=== PATIENT | male | born 1960 ===

== ENCOUNTER 2016-11-27 10:37 | Emergency (ER) | payer OTHER ==
[2016-11-27 10:48] VITALS: BP 126/76
--- NOTE | 2016-11-27 11:53 | UC ---
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 was able to ambulate immed afterwards. did exp swelling in calf that desmond and next day which persisted for few days and grad felt better. Over pst 3 days he has noticed swelling and ecchymosis in R ankle and foot. He has been working everyday since injury. he has an ortho appoint scheduled for Tuesday Severity Initially: Moderate Severity Currently: Mild Aggravating Factor(s): Other - wors with rest, better after ambulating Alleviating Factor(s): Elevation Able to Bear Weight: Yes - Allergies/Home Medications Allergies/Adverse Reactions: Allergies Allergy/AdvReac Type Severity Reaction Status Date / Time No Known Allergies Allergy Verified 11/27/16 10:47 PMH/Surg Hx/FS Hx/Imm Hx Previously Healthy: Yes - Surgical History Surgical History: None - Social History Alcohol Use: Occasionally Substance Use Type: None Smoking Status (MU): Never Smoked Tobacco Review of Systems Constitutional: Negative Skin: Bruising - R foot Respiratory: Negative Cardiovascular: Negative Musculoskeletal: Other: - pain R LE Neurological: Negative Psychological: Negative All Other Systems Reviewed And Are Negative: Yes Physical Exam Triage Information Reviewed: Yes Appearance: Well-Appearing, No Pain Distress, Well-Nourished Vital Signs: Initial Vital Signs Temp 97.8 F 11/27/16 10:41 Pulse 59 11/27/16 10:41 Resp 18 11/27/16 10:41 BP 126/76 11/27/16 10:41 Pulse Ox 100 11/27/16 10:41 Vital Signs Reviewed: Yes Respiratory Exam: Normal Cardiovascular Exam: Normal Cardiovascular: Positive: Pulses Normal - pedal pulse present R foot, Brisk Capillary Refill Musculoskeletal Exam: Other - mod swelling R calf and ankle/foot. ecchysmosis limited to distal foot and toes neg Hoaman's Musculoskeletal: Positive: Strength Intact, ROM Intact, Edema @ - R LE Neurological Exam: Normal Psychological Exam: Normal Skin Exam: Normal Lower Extremity Course/Dx - Differential Dx/Diagnosis Differential Diagnosis/HQI/PQRI: Contusion, DVT, Infection, Sprain, Strain Provider Diagnoses: Strain R lower extremity Discharge - Discharge Plan Condition: Stable Disposition: HOME Patient Education Materials: Muscle Strain (ED) Additional Instructions: elevate leg and apply warm packs follow-up with ortho as planned on Tuesday Report to ER if you experience increasing swelling, redness, cold foot, shortness of breath or chest pain
== END 2016-11-27 12:08 | disposition home or self-care (01) ==
LOC: UCEAST 10:37
DX: S86.911A Strain of unspecified muscle(s) and tendon(s) at lower leg level, right leg, initial encounter (principal); X50.1XXA Overexertion from prolonged static or awkward postures, initial encounter; Y93.9 Activity, unspecified; Y99.9 Unspecified external cause status
CPT/HCPCS: 99211; G0463

== ENCOUNTER 2016-12-20 16:49 | Emergency (ER) | payer OTHER ==
[2016-12-20 18:05] VITALS: BP 117/85
--- NOTE | 2016-12-20 18:44 | ED ---
Ed Fitzgerald Angela, scribed for Kory Chou MD on 12/20/16 at 1741 . Lower Extremity - HPI Summary HPI Summary: This pt is a 56 y/o male presenting to [facility] referred by his PCP c/o right leg swelling for a couple of weeks. Pt reports he tore his right calf muscle 1.5 months ago and had swelling then. Today, pt had his physical exam at PCP's office and his PCP noticed his right leg was still swollen. PCP sent him to the ED to rule out blood clot in right leg. Pt states his foot feels tight and swollen. He denies SOB, chest pain, fever. - History of Current Complaint Chief Complaint: EDExtremityLower Stated Complaint: RT CALF INJURY Time Seen by Provider: 12/20/16 17:35 Hx Obtained From: Patient Onset/Duration: Weeks Pain Intensity: 2 Pain Scale Used: 0-10 Numeric Timing: Lasting Weeks Location: Is Discrete @ - right leg Associated Signs And Symptoms: Positive: Swelling. Negative: Syncope, Abdominal Pain Aggravating Factor(s): Nothing Alleviating Factor(s): Nothing Able to Bear Weight: Yes - Allergies/Home Medications Allergies/Adverse Reactions: Allergies Allergy/AdvReac Type Severity Reaction Status Date / Time No Known Allergies Allergy Verified 11/27/16 10:47 PMH/Surg Hx/FS Hx/Imm Hx Endocrine/Hematology History: Denies: Hx Diabetes, Hx Thyroid Disease Cardiovascular History: Denies: Hx Hypertension Respiratory History: Denies: Hx Asthma, Hx Chronic Obstructive Pulmonary Disease (COPD) GI History: Denies: Hx Ulcer Infectious Disease History: Denies: Hx Clostridium Difficile, Hx Hepatitis, Hx Human Immunodeficiency Virus (HIV), Hx of Known/Suspected MRSA, Hx Shingles, Hx Tuberculosis, Hx Known/ Suspected VRE, Hx Known/Suspected VRSA, History Other Infectious Disease, Traveled Outside the [place] in Last 30 Days - Family History Known Family History: Positive: Diabetes - father - Social History Occupation: Employed Full-time - self-employed in retail business Alcohol Use: Occasionally Substance Use Type: Reports: None Smoking Status (MU): Never Smoked Tobacco Review of Systems Negative: Fever, Chills Eyes: Negative ENT: Negative Negative: Palpitations, Chest Pain Negative: Shortness Of Breath Gastrointestinal: Negative Genitourinary: Negative Positive: Edema - on right leg Skin: Negative Neurological: Negative All Other Systems Reviewed And Are Negative: Yes Physical Exam Triage Information Reviewed: Yes Vital Signs On Initial Exam: Initial Vitals Temp Pulse Resp BP Pulse Ox 98.2 F 64 16 116/96 98 12/20/16 16:59 12/20/16 16:59 12/20/16 16:59 12/20/16 16:59 12/20/16 16:59 Vital Signs Reviewed: Yes Appearance: Positive: Well-Appearing, No Pain Distress Skin: Positive: Warm, Skin Color Reflects Adequate Perfusion Head/Face: Positive: Normal Head/Face Inspection ENT: Positive: Normal ENT inspection Neck: Positive: Nontender Respiratory/Lung Sounds: Positive: Clear to Auscultation, Breath Sounds Present Cardiovascular: Positive: RRR. Negative: Murmur Abdomen Description: Positive: Nontender Musculoskeletal: Positive: Edema Right - right calf. Neurological: Positive: Sensory/Motor Intact, Alert, Oriented to Person Place, Time, CN Intact II-III Psychiatric: Positive: Normal - Rifle Coma Scale Best Eye Response: 4 - Spontaneous Best Motor Response: 6 - Obeys Commands Best Verbal Response: 5 - Oriented Diagnostics - Vital Signs Vital Signs Temp Pulse Resp BP Pulse Ox 12/20/16 16:59 98.2 F 64 16 116/96 98 - Laboratory Lab Statement: Any lab studies that have been ordered have been reviewed, and results considered in the medical decision making process. Lower Extremity Course/Dx - Course Course Of Treatment: 56 yr old male with right calf tightness and some swelling that persists for a month after pulling muscle playing ball. Venous doppler pending. - Diagnoses Provider Diagnoses: Leg edema, right Discharge - Discharge Plan Condition: Good Disposition: OTHER Discharge Disposition Comment: sign out Dr Strickland 1899 with venous doppler pending. The documentation as recorded by the Ed bui Angela accurately reflects the service I personally performed and the decisions made by , Kory Chou MD.
--- NOTE | 2016-12-20 18:50 | RAD ---
INDICATION: Pain and swelling. COMPARISON: None TECHNIQUE: Duplex interrogation of the Lowerextremity was performed. FINDINGS: Deep veins: The common femoral, great saphenous, profunda femoris, proximal, mid, and distal deep femoral, popliteal, posterior tibial, and peroneal veins are patent. There is normal compressibility, augmentation, and phasic flow. Superficial veins: There are no findings of superficial thrombophlebitis. Popliteal fossa:There is no evidence of a popliteal cyst. Soft tissues:There is a localized fluid collection in the right calf measuring 7.6 x 2.5 x 6.5 cm in which is likely a small hematoma. IMPRESSION: NO EVIDENCE OF DEEP VENOUS THROMBOSIS. SUSPECT SMALL CALF HEMATOMA
--- NOTE | 2016-12-26 11:23 | ED ---
Course/Dx - Course Course Of Treatment: 56 yr old male with right calf tightness and some swelling that persists for a month after pulling muscle playing ball. Venous doppler pending. - Diagnoses Provider Diagnoses: Leg edema, right
== END 2016-12-20 19:04 | disposition home or self-care (01) ==
LOC: ED 16:49
DX: R60.0 Localized edema (principal)
CPT/HCPCS: 99281